=== PATIENT | male | born 1945 | race Two or more races ===

== ENCOUNTER 2017-11-08 12:22 | Emergency (ER) | payer OTHER ==
[~2017-11-08] VITALS: Ht 160 cm; Wt 52.2 kg
[2017-11-08 13:51] VITALS: BP 112/56
== END 2017-11-08 13:51 | disposition home or self-care (01) ==
LOC: ED 12:22
DX: S51.012A Laceration without foreign body of left elbow, initial encounter (principal); X58.XXXA Exposure to other specified factors, initial encounter; Y93.89 Activity, other specified; Y92.89 Other specified places as the place of occurrence of the external cause; Y99.8 Other external cause status
CPT/HCPCS: 90715; J2001

== ENCOUNTER 2017-11-11 09:01 | Emergency (ER) | payer OTHER ==
[2017-11-11 09:33] VITALS: BP 145/63
== END 2017-11-11 09:33 | disposition home or self-care (01) ==
LOC: ED 09:01
DX: S61.412D Laceration without foreign body of left hand, subsequent encounter (principal); X58.XXXD Exposure to other specified factors, subsequent encounter

== ENCOUNTER 2017-11-18 09:13 | Emergency (ER) | payer OTHER ==
[~2017-11-18] VITALS: Ht 160 cm; Wt 52.7 kg
[2017-11-18 09:46] VITALS: Ht 160 cm; Wt 52.7 kg
[2017-11-18 11:19] VITALS: BP 134/90
== END 2017-11-18 11:19 | disposition home or self-care (01) ==
LOC: ED 09:13
DX: S51.012D Laceration without foreign body of left elbow, subsequent encounter (principal); X58.XXXD Exposure to other specified factors, subsequent encounter